=== PATIENT | male | born 1965 | race Caucasian/White ===

== ENCOUNTER 2016-07-09 04:24 | Emergency (ER) | payer MEDICAID ==
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
[2016-07-09 06:53] VITALS: BP 120/84; PULSE 77; RESP 16; TEMP 97.9; O2SAT 94
== END 2016-07-09 06:45 | disposition home or self-care (01) ==
LOC: EDUNIT#
DX: S02.401A Maxillary fracture, unspecified side, initial encounter for closed fracture (principal); S01.81XA Laceration without foreign body of other part of head, initial encounter; B20 Human immunodeficiency virus [HIV] disease; F17.200 Nicotine dependence, unspecified, uncomplicated; Y04.8XXA Assault by other bodily force, initial encounter

== ENCOUNTER 2017-04-24 12:56 | Emergency (ER) | payer MEDICAID ==
[2017-04-24 13:47] LABS: PLATELET COUNT 188 10^3/uL (150-400)
--- NOTE | 2017-04-24 17:48 | EDPHY ---
H & P Stated Complaint: M1 Hold - Personal History Current Tetanus Diphtheria and Acellular Pertussis (TDAP): Yes Tetanus Vaccine Date: 04/2010 - Medical/Surgical History Hx Asthma: No Hx Chronic Respiratory Disease: No Hx Diabetes: No Hx Cardiac Disease: No Hx Renal Disease: No Hx Cirrhosis: No Hx Alcoholism: No Hx HIV/AIDS: Yes Hx Splenectomy or Spleen Trauma: No Other PMH: l knee fx. hiv. psych - Social History Smoking Status: Current every day smoker HPI/ROS: Chief complaint: Suicidal ideation, on mental health hold History of present illness: This is a 51-year-old male who presents to the emergency department with police for suicidal ideation. Police have placed him on a mental health hold. Patient reports a history of depression. He reports he is having problems with his neighbors. He feels they are trying to make his life harder. It is making him depressed. He is thinking of killing himself. He has no specific plan. He denies homicidal ideation. He denies illness or injury. Review of systems: A 10 point review of systems was obtained and other than described above was negative (Diogenes Sethi) - Physical Exam Exam: General Appearance: Alert, nontoxic. Eyes: Pupils equal and round no pallor or injection. ENT, Mouth: Mucous membranes moist. Respiratory: There are no retractions, lungs are clear to auscultation. Cardiovascular: Regular rate and rhythm. Gastrointestinal: Abdomen is soft and non tender, no masses, bowel sounds normal. Neurological: Alert and oriented x4. Strength and sensation intact and symmetrical. Skin: Warm and dry, no rashes. Musculoskeletal: Neck is supple non tender. Extremities are symmetrical, full range of motion. Psychiatric: Patient is oriented X 3, there is no agitation. (Diogenes Sethi) Constitutional: Initial Vital Signs Temperature (C) 36.7 C 04/24/17 13:24 Heart Rate 74 04/24/17 13:24 Respiratory Rate 18 04/24/17 13:24 Blood Pressure 131/74 H 04/24/17 13:24 O2 Sat (%) 94 04/24/17 13:24 O2 Delivery Mode Room Air Allergies/Adverse Reactions: No Known Allergies Allergy (Unverified 03/07/09 08:30) Home Medications: Medication Instructions Recorded Hydrocodone/Acetaminophen [Vicodin 1 each PO Q4 PRN 03/07/09 5-300 mg Tablet] Acyclovir 04/05/17 Truvada 200MG/300MG (*) 07/09/16 Medical Decision Making ED Course/Re-evaluation: Patient is seen under the supervision of my secondary supervising physician Dr. Zara Ashton. Patient presents to the emergency department with police on a mental health hold. He is medically evaluated and cleared for psychiatric evaluation. This is pending at time of dictation. Care of patient turned over Dr. Ashton at end of shift. (Diogenes Sethi) I took over care of this patient at 6:00 p.m.. This patient is on an M1 hold for suicidal ideation. He does not have a plan for suicide. He has amphetamines in his system. Currently Behavioral Health this planning on evaluating him at 0400. 9:30 p.m., patient's care turned over to Dr. Jay Gregorio. He still awaits behavioral health evaluation. (Zara Ashton) 15:00 I assumed care of this patient at shift change. 1940: Pt seen again by mental health and felt ok for d/c home. Denies SI. I concur with this plan. Pt denies SI on my questioning, feels safe going home. Will f/u mental health. (Estephanie Silveira) 2300 Pt care assumed by me pending mental health evaluation. [address] Elizalde pending evaluation. No issues during my care of this patient overnight. (Trevor Jj) Differential Diagnosis: Included but not limited to substance abuse, depression, bipolar, schizophrenia (Diogenes Sethi) - Data Points Laboratory Results: Laboratory Results 04/24/17 13:36 04/24/17 13:36 04/25/17 18:20 Urine Opiates Screen NEGATIVE (NEGATIVE) Urine Barbiturates NEGATIVE (NEGATIVE) Ur Phencyclidine Scrn NEGATIVE (NEGATIVE) Ur Amphetamine Screen NEGATIVE (NEGATIVE) U Benzodiazepines Scrn NEGATIVE (NEGATIVE) Urine Cocaine Screen NEGATIVE (NEGATIVE) U Marijuana (THC) Screen NON-NEGATIVE H (NEGATIVE) Medications Given: Discontinued Medications Clonazepam (Klonopin) 1 mg PO EDNOW ONE Stop: 04/25/17 05:07 Last Admin: 04/25/17 05:07 Dose: Not Given Lamotrigine (Lamictal) 150 mg PO EDNOW ONE Stop: 04/25/17 05:07 Last Admin: 04/25/17 05:07 Dose: Not Given Departure - Departure Disposition: Home, Routine, Self-Care Clinical Impression: Suicidal ideation Condition: Good Instructions: Suicide Prevention for Adults (ED) Additional Instructions: Follow-up with mental health as suggested. Referrals: Elijah Cardenas MD [Primary Care Provider] - As per Instructions
[2017-04-25] MEDS ORDERED: lamoTRIgine 100 MG TAB PO ONE (05:06)
[2017-04-25] MEDS ORDERED: clonazePAM 1 MG TAB PO ONE (05:06)
[2017-04-25 20:03] VITALS: BP 117/77; PULSE 90; RESP 18; TEMP 98.6; O2SAT 93
== END 2017-04-25 20:04 | disposition home or self-care (01) ==
LOC: EEVIPCON 12:56
DX: R45.851 Suicidal ideations (principal); B20 Human immunodeficiency virus [HIV] disease; F17.200 Nicotine dependence, unspecified, uncomplicated
CPT/HCPCS: 80305; G0480

== ENCOUNTER 2018-05-18 17:00 | Inpatient (IN) | payer MEDICAID ==
[2018-05-18] MEDS ORDERED: ACETAMINOPHEN 500 MG TAB PO ONE (17:20)
[2018-05-18] MEDS ORDERED: NS 2,200 ML IV ONE (17:23)
[2018-05-18] MEDS ORDERED: ALBUTEROL 3 ML DEYVIAL IH ONE (17:24)
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
[2018-05-18] MEDS ORDERED: AZITHROMYCIN IV 500 MG in NS 250 ML IV ONE (17:54)
[2018-05-18] MEDS: IBUPROFEN 600 MG TAB PO ONE ×2 (18:09)
[2018-05-18 18:27] LABS: PLATELET COUNT 204 10^3/uL (150-400)
[2018-05-18 18:43] LABS: INR 1.04 (0.83-1.16); PROTIME(PATIENT) 13.8 SEC (12.0-15.0)
[2018-05-18] MEDS ORDERED: IPRATROPIUM/ALBUTEROL 3 ML DEYVIAL IH ONE (18:49)
[2018-05-18] MEDS ORDERED: methylPREDNISolone SOD SUCC 125 MG/2 ML VIAL IVP ONE (18:49)
[2018-05-18] MEDS ORDERED: ACETAMINOPHEN 325 MG TAB PO PRN (19:00)
[2018-05-18] MEDS ORDERED: ONDANSETRON 4 MG/2 ML VIAL IVP PRN (19:00)
[2018-05-18] MEDS ORDERED: ONDANSETRON DISINTEGRATING 4 MG TAB PO PRN (19:00)
--- NOTE | 2018-05-18 19:48 | PDGENHP ---
History and Physical - Chief Complaint Cough, SOB - History of Present Illness Brian Rivera is a 52 yo M with a PMHx of HIV on ART followed by [facility] ESTEFANY Riley who presents to [facility] for SOB, cough. He reports that he was seen by his PCP last Thursday and was diagnosed with PNA however refused admission and but was not started on antibiotics. Since then he has been increasing SOB with a productive cough of green sputum as well as wheezing. He denies any chest pain, edema, palpitations, hemoptysis, headache. He reports posttussive emesis this morning. History Information - Allergies/Home Medication List Allergies/Adverse Reactions: No Known Allergies Allergy (Unverified 03/07/09 08:30) Home Medications: Acyclovir 07/09/16 [Last Taken Unknown] Truvada 200MG/300MG (*) 07/09/16 [Last Taken Unknown] oxyCODONE HCL/ACETAMINOPHEN [Percocet 10-325 mg Tablet] 1 each PO Q6 05/18/18 [ Last Taken Unknown] I have personally reviewed and updated: family history, medical history, social history, surgical history - Past Medical History COPD, HIV - Surgical History Reports: no pertinent surgical hx - Family History Positive for: non-pertinent - Social History Smoking Status: Current every day smoker Review of Systems Review of Systems: ROS: 10pt was reviewed & negative except for what was stated in HPI & below Physical Exam Physical Exam: Temp Pulse Resp BP Pulse Ox 37.3 C 101 H 31 H 137/75 H 95 05/18/18 19:00 05/18/18 19:00 05/18/18 19:00 05/18/18 19:00 05/18/18 19:00 Constitutional: chronically ill appearing, unkempt Eyes: anicteric sclera Ears, Nose, Mouth, Throat: dry mucous membranes Cardiovascular: tachycardia Respiratory: no respiratory distress, reduced air movement, expiratory wheeze, bronchial breath sounds Gastrointestinal: soft, non-tender abdomen Skin: warm Musculoskeletal: generalized weakness Neurologic: AAOx3 Psychiatric: interacting appropriately Lab Data & Imaging Review 05/18/18 17:18 05/18/18 17:54 WBC 13.98 10^3/uL (3.80-9.50) H 05/18/18 17:18 RBC 4.49 10^6/uL (4.40-6.38) 05/18/18 17:18 Hgb 14.6 g/dL (13.7-17.5) 05/18/18 17:18 Hct 43.0 % (40.0-51.0) 05/18/18 17:18 MCV 95.8 fL (81.5-99.8) 05/18/18 17:18 MCH 32.5 pg (27.9-34.1) 05/18/18 17:18 MCHC 34.0 g/dL (32.4-36.7) 05/18/18 17:18 RDW 13.7 % (11.5-15.2) 05/18/18 17:18 Plt Count 204 10^3/uL (150-400) 05/18/18 17:18 MPV 9.4 fL (8.7-11.7) 05/18/18 17:18 Neut % (Auto) 87.3 % (39.3-74.2) H 05/18/18 17:18 Lymph % (Auto) 6.2 % (15.0-45.0) L 05/18/18 17:18 [place] % (Auto) 5.4 % (4.5-13.0) 05/18/18 17:18 Eos % (Auto) 0.4 % (0.6-7.6) L 05/18/18 17:18 Baso % (Auto) 0.4 % (0.3-1.7) 05/18/18 17:18 Nucleat RBC Rel Count 0.0 % (0.0-0.2) 05/18/18 17:18 Absolute Neuts (auto) 12.19 10^3/uL (1.70-6.50) H 05/18/18 17:18 Absolute Lymphs (auto) 0.87 10^3/uL (1.00-3.00) L 05/18/18 17:18 Absolute Monos (auto) 0.76 10^3/uL (0.30-0.80) 05/18/18 17:18 Absolute Eos (auto) 0.06 10^3/uL (0.03-0.40) 05/18/18 17:18 Absolute Basos (auto) 0.06 10^3/uL (0.02-0.10) 05/18/18 17:18 Absolute Nucleated RBC 0.00 10^3/uL (0-0.01) 05/18/18 17:18 Immature Gran % 0.3 % (0.0-1.1) 05/18/18 17:18 Immature Gran # 0.04 10^3/uL (0.00-0.10) 05/18/18 17:18 PT 13.8 SEC (12.0-15.0) 05/18/18 17:18 INR 1.04 (0.83-1.16) 05/18/18 17:18 APTT 46.3 SEC (23.0-38.0) H 05/18/18 17:18 VBG Lactic Acid 0.9 mmol/L (0.7-2.1) 05/18/18 17:54 Sodium 134 mEq/L (135-145) L 05/18/18 17:54 Potassium 4.0 mEq/L (3.5-5.2) 05/18/18 17:54 Chloride 104 mEq/L (97-110) 05/18/18 17:54 Carbon Dioxide 20 mEq/l (22-31) L 05/18/18 17:54 Anion Gap 10 mEq/L (6-14) 05/18/18 17:54 BUN 11 mg/dL (7-23) 05/18/18 17:54 Creatinine 1.1 mg/dL (0.7-1.3) 05/18/18 17:54 Estimated GFR > 60 05/18/18 17:54 Glucose 117 mg/dL (70-100) H 05/18/18 17:54 Calcium 9.2 mg/dL (8.5-10.4) 05/18/18 17:54 Total Bilirubin 0.8 mg/dL (0.1-1.4) 05/18/18 17:54 Assessment & Plan Assessment: Sepsis - Presenting with fever, 39.2, Leukocytosis 13.9, Tachycardia, BP WNL - Source PNA, CXR shows RLL consolidation on admission - Sepsis protocol initiated in ED with 30 cc/kg IVF, Abx (Ceftriaxone and Azithromycin) - Will continue mIVF overnight - Initial LA 0.9 - Blood cultures x2 collected Community Acquired Pneumonia - 1 week of productive cough, fevers - CXR on admission showing RLL PNA - S/p Ceftriaxone and Azithromycin in ED, will continue for now COPD Exacerbation - Significant wheezing on exam - S/p 125 mg IV Solumedrol in ED, will continue Prednisone 40 mg qd for total 5 day course - Ordered Duonebs scheduled QID, PRN as well - Flu and Resp PCR pending - Wean 02 as tolerated HIV - On Truvada, Acyclovir for ppx - CD4 count and viral load pending, per patient most recent CD4 count 300 Tobacco Abuse - Nicotine patch ordered FEN: IVF DVT PPx: Lovenox Code: FULL Dispo: Admit to Medicine
[2018-05-18] MEDS ORDERED: IPRATROPIUM/ALBUTEROL 3 ML DEYVIAL IH PRN (20:02)
[2018-05-18] MEDS ORDERED: NS 1,000 ML IV SCH (20:15)
[2018-05-19 05:31] LABS: PLATELET COUNT 172 10^3/uL (150-400)
[2018-05-19] MEDS: predniSONE 20 MG TAB PO SCH (09:45)
--- NOTE | 2018-05-19 09:46 | PDMN ---
Medical Necessity Medical necessity: [facility] [place] CAP, A-2 days: 52 yo w/ sepsis 2nd CAP in setting of HIV+ on ART. Pt tachy 122, tachypneac 30s, temp 39.2, BC pending. Meet [facility] IP criteria for CAP w/ hemodynamic instability in immunocompromised pt.
[2018-05-19] MEDS: LIDOCAINE 4%/MENTHOL 1% PATCH TD SCH (10:16)
[2018-05-19] MEDS: NICOTINE 14 MG/24 HR PATCH TD SCH (10:16)
[2018-05-19] MEDS: ENOXAPARIN 40 MG/0.4 ML SYR SC SCH (10:17)
[2018-05-19] MEDS: IPRATROPIUM/ALBUTEROL 3 ML DEYVIAL IH SCH ×3 (10:37→19:33)
[2018-05-19] MEDS: EMTRICITABINE PO SCH (11:56)
[2018-05-19] MEDS: TENOFOV ALAFENAM PO SCH (11:56)
[2018-05-19] MEDS: DARUNAVIR PO SCH (11:57)
[2018-05-19] MEDS: COBICISTAT PO SCH (11:57)
--- NOTE | 2018-05-19 11:57 | ASMTCMCOM ---
CM Note CM Note Notes: Pt who is homeless came in from long term has pneumonia, hypoxia. Pt with COPD and HIV, followed at [facility]. Chart review indicates pt last saw PCP last week was diagnosed with pneumonia and declined admission. Pt on IV antibiotics. Chart also indicates pt "lost" O2 tank and medications in last day. PT/OT evals pending. CM to follow. Date Signed: 05/19/2018 11:56 AM Electronically Signed By:KATERINA Springer
[2018-05-19] MEDS: SULFAMETHOX/TMP 800/160 MG 1 TAB PO SCH (12:04)
[2018-05-19] MEDS: ACYCLOVIR 400 MG TAB PO SCH ×2 (12:45→20:38)
[2018-05-19] MEDS: oxyCODONE IR 5 MG TAB PO SCH ×3 (13:22→23:20)
[2018-05-19] MEDS: OXYCODONE/APAP 5/325 TAB PO SCH ×3 (13:22→23:20)
--- NOTE | 2018-05-19 17:06 | HOSPPROG ---
Hospitalist Progress Note Assessment/Plan: 52-year-old male with past medical history of HIV admitted with sepsis likely due to community-acquired pneumonia. Sepsis -source likely due to right lower lobe pneumonia. White count trending down, no longer febrile. Remains hypoxic on room air. - Will continue mIVF overnight - Initial LA 0.9 - Blood cultures x2 collected - continue abx for CAP with rocephin and azithro Community Acquired Pneumonia - 1 week of productive cough, fevers - CXR on admission showing RLL PNA - S/p Ceftriaxone and Azithromycin in ED, will continue for now COPD Exacerbation - Significant wheezing on exam - S/p 125 mg IV Solumedrol in ED, will continue Prednisone 40 mg qd for total 5 day course - Ordered Duonebs scheduled QID, PRN as well - Flu and Resp PCR negative - Wean 02 as tolerated HIV- states his last CD4 was 300, follows with a doc at in [place] - On Truvada, Acyclovir for ppx -on descovy, and prezcobix, confirmed by pharmacy -he has one dose of his home HIV meds which we bree cont here. 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 on oxy for this. Cont home dose. Tobacco Abuse - Nicotine patch ordered FEN: IVF DVT PPx: Lovenox Code: FULL Dispo: continue inpatient mangaement for hypoxia, pna Subjective: still coughing a lot, feet hurt. Objective: Vital Signs Temp Pulse Resp BP Pulse Ox 36.5 C 83 16 109/68 92 05/19/18 15:49 05/19/18 16:20 05/19/18 16:20 05/19/18 15:49 05/19/18 16:20 Microbiology 05/18/18 21:30 Respiratory Panel (PCR) - Final Nasal, Sinus - Swab No Organism Detected By Pcr Laboratory Results 05/19/18 05:00 05/19/18 05:00 05/18/18 05/19/18 05/20/18 05:59 05:59 05:59 Intake Total 3630 Output Total 1300 Balance 2330 PT 13.8 SEC (12.0-15.0) 05/18/18 17:18 INR 1.04 (0.83-1.16) 05/18/18 17:18 ICD10 Worksheet Patient Problems: Problems Problem Status Onset Hypoxia Acute Pneumonia Acute AIDS Acute Acute respiratory failure Acute Malnutrition Acute Nausea and vomiting Acute
[2018-05-19] MEDS: AZITHROMYCIN IV 500 MG in NS 250 ML IV SCH (18:11)
[2018-05-19] MEDS: BENZONATATE 100 MG CAP PO PRN (18:54)
[2018-05-19] MEDS: PATCH REMOVAL 1 EA PATCH TD SCH (20:43)
[2018-05-19] MEDS ORDERED: IPRATROPIUM/ALBUTEROL 3 ML DEYVIAL IH SCH (21:00)
[2018-05-19 21:38] LABS: %CD3 (T CELLS) 81 % (58-86); 4/8 RATIO 0.2 (>=0.9); CD3 (T CELLS) 615 cells/mcL (550-2202); CD4 (T CELLS) 97 cells/mcL (365-1437); CD45 TOTAL LYMPH COUNT 0.76 thou/mcL (0.82-2.84); CD8 (T CELLS) 495 cells/mcL (117-846)
[2018-05-20] MEDS: BENZONATATE 100 MG CAP PO PRN ×2 (02:35→22:17)
[2018-05-20] MEDS: IPRATROPIUM/ALBUTEROL 3 ML DEYVIAL IH SCH ×4 (05:23→19:59)
[2018-05-20] MEDS: oxyCODONE IR 5 MG TAB PO SCH ×4 (05:26→23:36)
[2018-05-20] MEDS: OXYCODONE/APAP 5/325 TAB PO SCH ×4 (05:26→23:36)
[2018-05-20 05:56] LABS: PLATELET COUNT 172 10^3/uL (150-400)
[2018-05-20] MEDS: SULFAMETHOX/TMP 800/160 MG 1 TAB PO SCH (09:24)
[2018-05-20] MEDS: ACYCLOVIR 400 MG TAB PO SCH ×2 (09:24→22:10)
[2018-05-20] MEDS: predniSONE 20 MG TAB PO SCH (09:25)
[2018-05-20] MEDS: ENOXAPARIN 40 MG/0.4 ML SYR SC SCH (09:25)
[2018-05-20] MEDS: BIOTENE DRY MOUTH ORAL RINSE 237 ML BTL MM PRN ×2 (09:28→17:32)
[2018-05-20] MEDS: NICOTINE 14 MG/24 HR PATCH TD SCH (09:28)
[2018-05-20] MEDS: LIDOCAINE 4%/MENTHOL 1% PATCH TD SCH (09:28)
--- NOTE | 2018-05-20 11:04 | ASMTCMCOM ---
CM Note CM Note Notes: Met with patient. He is in a reserved bed at [facility]. I called and left a message with Fortino informing him of patient's admission. We will need to ensure that patient returns to longterm with all discharge paperwork. I also spoke jeanne Garcia, patient's Imaging Analyst at [facility]. She is working on finding housing for patient. Per Gloria at [facility], patient had PPD placed 05/17. I read the test, and it was negative. I will provide documentation for the longterm, and Gloria will chart it, as well. Current CM discharge plan: [facility] Date Signed: 05/20/2018 11:03 AM Electronically Signed By:Shobha Bravo RN
[2018-05-20] MEDS: COBICISTAT PO SCH (11:39)
[2018-05-20] MEDS: DARUNAVIR PO SCH (11:39)
[2018-05-20] MEDS: EMTRICITABINE PO SCH (11:39)
[2018-05-20] MEDS: TENOFOV ALAFENAM PO SCH (11:39)
--- NOTE | 2018-05-20 15:24 | HOSPPROG ---
Hospitalist Progress Note Assessment/Plan: 52-year-old male with past medical history of HIV admitted with sepsis likely due to community-acquired pneumonia. Community Acquired Pneumonia -CXR with RLL - 1 week of productive cough, fevers - CXR on admission showing RLL PNA - S/p Ceftriaxone and Azithromycin in ED, will continue for now COPD Exacerbation - Significant wheezing on exam - S/p 125 mg IV Solumedrol in ED, will continue Prednisone 40 mg qd for total 5 day course - Ordered Duonebs scheduled QID, PRN as well - Flu and Resp PCR negative - Wean 02 as tolerated HIV- states his last CD4 was 300, follows with a doc at in [place]. I checked CD4 while here and it is now 97. Will discuss with ID - On Truvada, Acyclovir for ppx -on descovy, and prezcobix, confirmed by pharmacy, last dose today. I discussed the case with pharm D and they will look in to getting doses while here, but we may not be able to get his meds while here. - CD4 count and viral load are low, patient meets criteria for AIDS -will consult ID to ensure patient shouldnt be on a different regimen. 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 on oxy for this. Cont home dose. Tobacco Abuse - Nicotine patch ordered FEN: IVF DVT PPx: Lovenox Code: FULL Dispo: continue inpatient mangaement for hypoxia, pna Subjective: has heart burn. Feels breathing better. Objective: Vital Signs Temp Pulse Resp BP Pulse Ox 36.3 C 72 18 112/63 93 05/20/18 11:08 05/20/18 11:30 05/20/18 11:30 05/20/18 11:08 05/20/18 11:30 Laboratory Results 05/20/18 05:42 05/20/18 05:42 05/19/18 05/20/18 05/21/18 05:59 05:59 05:59 Intake Total 3630 3150 Output Total 1300 600 Balance 2330 2550 PT 13.8 SEC (12.0-15.0) 05/18/18 17:18 INR 1.04 (0.83-1.16) 05/18/18 17:18 - Physical Exam Constitutional: no apparent distress, appears nourished, not in pain Eyes: PERRL, anicteric sclera, EOMI Ears, Nose, Mouth, Throat: moist mucous membranes, hearing normal, ears appear normal, no oral mucosal ulcers Cardiovascular: regular rate and rhythym, no murmur, rub, or gallop Respiratory: reduced air movement Gastrointestinal: normoactive bowel sounds, soft, non-tender abdomen, no palpable masses Genitourinary: no bladder fullness, no bladder tenderness, no renal bruits Skin: no rashes or abrasions, no fluctuance, no induration Musculoskeletal: full muscle strength, no muscle tenderness, normal joint ROM Neurologic: AAOx3, sensation intact bilaterally Psychiatric: interacting appropriately, not anxious, not encephalopathic, thought process linear Lymph, Heme, Immunologic: no cervical LAD, no supraclavicular LAD ICD10 Worksheet Patient Problems: Problems Problem Status Onset Hypoxia Acute Pneumonia Acute AIDS Acute Acute respiratory failure Acute Malnutrition Acute Nausea and vomiting Acute
[2018-05-20] MEDS: AZITHROMYCIN IV 500 MG in NS 250 ML IV SCH (18:06)
[2018-05-20] MEDS: PATCH REMOVAL 1 EA PATCH TD SCH (22:11)
[2018-05-20] MEDS: CALCIUM CARBONATE 500 MG CHEWABLE TAB PO PRN (23:35)
[2018-05-21] MEDS: BENZONATATE 100 MG CAP PO PRN ×3 (04:12→23:41)
[2018-05-21] MEDS: CALCIUM CARBONATE 500 MG CHEWABLE TAB PO PRN ×3 (04:14→18:45)
[2018-05-21 05:49] LABS: PLATELET COUNT 198 10^3/uL (150-400)
[2018-05-21] MEDS: IPRATROPIUM/ALBUTEROL 3 ML DEYVIAL IH SCH ×4 (06:06→21:32)
[2018-05-21] MEDS: oxyCODONE IR 5 MG TAB PO SCH ×4 (06:15→23:41)
[2018-05-21] MEDS: OXYCODONE/APAP 5/325 TAB PO SCH ×4 (06:15→23:41)
[2018-05-21] MEDS: SULFAMETHOX/TMP 800/160 MG 1 TAB PO SCH (08:32)
[2018-05-21] MEDS: ACYCLOVIR 400 MG TAB PO SCH ×2 (08:32→20:04)
[2018-05-21] MEDS: predniSONE 20 MG TAB PO SCH (08:32)
[2018-05-21] MEDS: ENOXAPARIN 40 MG/0.4 ML SYR SC SCH (08:32)
[2018-05-21] MEDS: LIDOCAINE 4%/MENTHOL 1% PATCH TD SCH (08:33)
[2018-05-21] MEDS: NICOTINE 14 MG/24 HR PATCH TD SCH (08:33)
[2018-05-21] MEDS: EMTRICITABINE PO SCH (11:29)
[2018-05-21] MEDS: TENOFOV ALAFENAM PO SCH (11:29)
[2018-05-21] MEDS: DARUNAVIR PO SCH (11:30)
[2018-05-21] MEDS: COBICISTAT PO SCH (11:30)
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
[2018-05-21] MEDS: guaiFENesin 200 MG TAB PO PRN ×2 (12:47→20:04)
--- NOTE | 2018-05-21 13:17 | HOSPPROG ---
Hospitalist Progress Note Assessment/Plan: 52-year-old male with past medical history of HIV admitted with sepsis likely due to community-acquired pneumonia. Community Acquired Pneumonia -CXR with RLL - 1 week of productive cough, fevers - CXR on admission showing RLL PNA - S/p Ceftriaxone and Azithromycin in ED, will continue for now -check strep pneumo and legionella urinary antigen COPD Exacerbation - Significant wheezing on exam - S/p 125 mg IV Solumedrol in ED, will continue Prednisone 40 mg qd for total 5 day course - Ordered Duonebs scheduled QID, PRN as well - Flu and Resp PCR negative - Wean 02 as tolerated -tessalon and humabid for cough HIV- states his last CD4 was 300, follows with a doc at in [place]. I checked CD4 while here and it is now 97. ID consulted who recommends continue on current regimen. - On Truvada, Acyclovir for ppx -on descovy, and prezcobix, confirmed by pharmacy, patient only had one dose. Not on formulary. . I discussed the case with pharm D and they will look in to getting doses while here, but we may not be able to get his meds while here. 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 on oxy for this. Cont home dose. Tobacco Abuse - Nicotine patch ordered FEN: IVF DVT PPx: Lovenox Code: FULL Dispo: continue inpatient mangaement for hypoxia, pna Subjective: still coughing a lot. otherwise well. Objective: Vital Signs Temp Pulse Resp BP Pulse Ox 36.4 C 71 16 115/71 96 05/21/18 08:00 05/21/18 11:13 05/21/18 11:13 05/21/18 08:00 05/21/18 11:13 Laboratory Results 05/21/18 05:28 05/21/18 05:28 05/20/18 05/21/18 05/22/18 05:59 05:59 05:59 Intake Total 3150 2668 1747 Output Total 600 1700 710 Balance 2550 968 1037 PT 13.8 SEC (12.0-15.0) 05/18/18 17:18 INR 1.04 (0.83-1.16) 05/18/18 17:18 - Physical Exam Constitutional: no apparent distress, appears nourished, not in pain Eyes: PERRL, anicteric sclera, EOMI Ears, Nose, Mouth, Throat: moist mucous membranes, hearing normal, ears appear normal, no oral mucosal ulcers Cardiovascular: regular rate and rhythym, no murmur, rub, or gallop Respiratory: reduced air movement, expiratory wheeze Gastrointestinal: normoactive bowel sounds, soft, non-tender abdomen, no palpable masses Genitourinary: no bladder fullness, no bladder tenderness, no renal bruits Skin: no rashes or abrasions, no fluctuance, no induration Musculoskeletal: full muscle strength, no muscle tenderness, normal joint ROM Neurologic: AAOx3, sensation intact bilaterally Psychiatric: interacting appropriately, not anxious, not encephalopathic, thought process linear Lymph, Heme, Immunologic: no cervical LAD, no supraclavicular LAD ICD10 Worksheet Patient Problems: Problems Problem Status Onset Hypoxia Acute Pneumonia Acute AIDS Acute Acute respiratory failure Acute Malnutrition Acute Nausea and vomiting Acute
[2018-05-21] MEDS: AZITHROMYCIN IV 500 MG in NS 250 ML IV SCH (18:45)
[2018-05-21] MEDS: PATCH REMOVAL 1 EA PATCH TD SCH (20:01)
[2018-05-22 04:49] LABS: PLATELET COUNT 220 10^3/uL (150-400)
[2018-05-22] MEDS: OXYCODONE/APAP 5/325 TAB PO SCH ×3 (05:47→18:07)
[2018-05-22] MEDS: oxyCODONE IR 5 MG TAB PO SCH ×3 (05:47→18:06)
[2018-05-22] MEDS: CALCIUM CARBONATE 500 MG CHEWABLE TAB PO PRN (05:47)
[2018-05-22] MEDS: BIOTENE DRY MOUTH ORAL RINSE 237 ML BTL MM PRN ×2 (05:49→18:14)
[2018-05-22] MEDS: IPRATROPIUM/ALBUTEROL 3 ML DEYVIAL IH SCH ×4 (05:59→21:50)
--- NOTE | 2018-05-22 08:59 | HOSPPROG ---
Hospitalist Progress Note Assessment/Plan: #CAP -Strep/Legionella pending -CTX, Azithro #Tobacco dependence: counseled on cessation #HIV: have to contact his doctor on Thursday for antivirals #Peripheral neuropathy #COPD exacerbation: Duonebs, prednisone #Acute hypoxemic resp failure: evidenced by RA 81%. Due to COPD exacerbation, CAP #Diet: regular #DVT ppx: lovenox Disp: inpatient admission for iv abx, nebs Subjective: feeling better. SOB improved Objective: Vital Signs Temp Pulse Resp BP Pulse Ox 36.4 C 73 14 103/84 H 92 05/22/18 04:00 05/22/18 07:40 05/22/18 07:40 05/22/18 07:40 05/22/18 07:40 Laboratory Results 05/22/18 04:35 05/22/18 04:35 05/21/18 05/22/18 05/23/18 05:59 05:59 05:59 Intake Total 2668 2347 Output Total 1700 710 Balance 968 1637 PT 13.8 SEC (12.0-15.0) 05/18/18 17:18 INR 1.04 (0.83-1.16) 05/18/18 17:18 - Time Spent With Patient Time Spent with Patient: greater than 35 minutes Time Spent with Patient: Greater than 35 minutes spent on this patients care, greater than 50% of time spent counseling, educating, and coordinating care regarding the above mentioned plan. - Physical Exam Constitutional: other (thin) Eyes: PERRL Ears, Nose, Mouth, Throat: moist mucous membranes Cardiovascular: regular rate and rhythym Respiratory: reduced air movement, No expiratory wheeze, No inspiratory crackles Gastrointestinal: normoactive bowel sounds, soft, non-tender abdomen Genitourinary: no bladder fullness Skin: warm Musculoskeletal: full muscle strength Neurologic: AAOx3, CN II-XII Intact Psychiatric: interacting appropriately ICD10 Worksheet Patient Problems: Problems Problem Status Onset Hypoxia Acute Pneumonia Acute AIDS Acute Acute respiratory failure Acute Malnutrition Acute Nausea and vomiting Acute
[2018-05-22] MEDS: ENOXAPARIN 40 MG/0.4 ML SYR SC SCH (09:12)
[2018-05-22] MEDS: SULFAMETHOX/TMP 800/160 MG 1 TAB PO SCH (09:13)
[2018-05-22] MEDS: NICOTINE 14 MG/24 HR PATCH TD SCH (09:13)
[2018-05-22] MEDS: predniSONE 20 MG TAB PO SCH (09:13)
[2018-05-22] MEDS: LIDOCAINE 4%/MENTHOL 1% PATCH TD SCH (09:13)
[2018-05-22] MEDS: ACYCLOVIR 400 MG TAB PO SCH ×2 (09:13→20:40)
--- NOTE | 2018-05-22 11:37 | PCMIDPN ---
Assessment/Plan: Assessment: 52-year-old man with community onset pneumonia complicating chronic interstitial lung disease and emphysema. Overall he has improved and is now able to expectorate more sputum. Do not suspect an opportunistic infection in this setting, although it is unclear of how adherent he has been to his antiretrovirals and how accurate his CD4 count is on this admission. Will connect with his outpatient HIV provider on Thursday but in the interim will have to hold his antiretrovirals. 1. Community onset pneumonia, improved 2. HIV infection, without AIDS defining illnesses 3. Interstitial lung disease, no immune suppressive medications chronically 4. Emphysema Plan: 1. Continue IV ceftriaxone but decrease dose to 1 g daily 2. Discontinue IV azithromycin; start oral azithromycin 250 mg p. O. Daily 3. Hold anti-retroviral medications as is unclear how consistent he has been able to take these; unable to connect with his outpatient HIV provider on Thursday , this will have to occur on Thursday 4. Pending urine Legionella and pneumococcal antigen testing 5. Discussed in detail potential side effects of antibiotics including antibiotic associated diarrhea, rash, C diff colitis Jose A Montano MD Infectious Diseases 05/22/18 11:35 Subjective: No fever or chills over the past 24 hr. He does continue to have night sweats. No abdominal pain, nausea, or diarrhea. He has not developed any rashes. States he has been ambulating both in his room and in the hallway that helped him to cough deeply and expectorates sputum which is increased over the past 24 hr. Objective: Vital Signs Temp Pulse Resp BP Pulse Ox 36.4 C 73 14 103/84 H 92 05/22/18 04:00 05/22/18 07:40 05/22/18 07:40 05/22/18 07:40 05/22/18 07:40 Laboratory Results 05/22/18 04:35 05/22/18 04:35 05/21/18 05/22/18 05/23/18 05:59 05:59 05:59 Intake Total 6269 8127 Output Total 8545 710 Balance 968 1027 Medications Generic Name Dose Route Start Last Admin Trade Name Freq PRN Reason Stop Dose Admin Acyclovir 400 mg 05/19/18 12:15 05/22/18 09:13 Acyclovir PO 06/18/18 12:14 400 mg BID DIONY Azithromycin 250 mg 05/22/18 19:00 Zithromax PO 06/21/18 18:59 DAILY@1900 [facility] Protocol Ceftriaxone Sodium/Dextrose 50 mls @ 100 mls/hr 05/22/18 19:00 Rocephin 1 Gm (Premix) IV 06/21/18 18:59 DAILY@1900 [facility] Protocol Trimethoprim/Sulfamethoxazole 1 ea 05/19/18 10:00 05/22/18 09:13 Bactrim Ds PO 06/18/18 09:59 1 ea DAILY [facility] Protocol Discontinued Medications Generic Name Dose Route Start Last Admin Trade Name Lalo PRN Reason Stop Dose Admin Azithromycin 500 mg/ Sodium 255 mls @ 255 mls/hr 05/19/18 19:00 05/21/18 18: 45 Chloride IV 06/18/18 18:59 255 mls Q24H DIONY Protocol Ceftriaxone Sodium 2 gm/ 50 mls @ 100 mls/hr 05/19/18 18:30 05/21/18 18:00 Sodium Chloride IV 06/18/18 18:29 50 mls Q24H DIONY Protocol Microbiology 05/18/18 21:30 Nasal, Sinus - Swab Respiratory Panel (PCR) - Final No Organism Detected By Pcr 05/18/18 18:35 Blood Blood Culture - Preliminary 05/18/18 17:54 Blood Blood Culture - Preliminary Laboratory Tests 05/20/18 05/21/18 05/21/18 05:42 05:28 05:28 WBC 15.77 H 10.92 H Hgb 12.0 L 12.1 L Plt Count 172 198 Creatinine 0.9 ALT Alkaline Phosphatase Total Protein Albumin 05/22/18 05/22/18 04:35 04:35 WBC 8.58 Hgb 13.5 L Plt Count 220 Creatinine 0.8 ALT 35 Alkaline Phosphatase 67 Total Protein 6.1 L Albumin 3.2 L - Physical Exam General Appearance: no apparent distress, thin, non-toxic EENT: No scleral icterus Respiratory: other (Diminished breath sounds to the bases bilaterally, no wheeze ) Neck: full range of motion, supple Cardiac/Chest: regular rate, rhythm, No bradycardia, No tachycardia, No diastolic murmur, No systolic murmur Extremities: No swelling, No erythema Abdomen: normal bowel sounds, non-tender, soft, No distended, No guarding Skin: No erythema Neuro/Psych: alert, normal mood/affect, oriented x 3, No confused - Time Spent With Patient Time Spent with Patient: greater than 25 minutes Time Spent with Patient: Greater than 25 minutes spent on this patients care, greater than 50% of time spent counseling, educating, and coordinating care regarding the above mentioned plan. ICD10 Worksheet Patient Problems: Problems Problem Status Onset Hypoxia Acute Pneumonia Acute AIDS Acute Acute respiratory failure Acute Malnutrition Acute Nausea and vomiting Acute
[2018-05-22] MEDS: AZITHROMYCIN 250 MG TAB PO SCH (18:06)
[2018-05-22] MEDS: guaiFENesin 200 MG TAB PO PRN (20:39)
[2018-05-22] MEDS: BENZONATATE 100 MG CAP PO PRN (20:39)
[2018-05-22] MEDS: PATCH REMOVAL 1 EA PATCH TD SCH (20:42)
[2018-05-23] MEDS: oxyCODONE IR 5 MG TAB PO SCH ×4 (00:41→17:54)
[2018-05-23] MEDS: OXYCODONE/APAP 5/325 TAB PO SCH ×4 (00:41→17:54)
[2018-05-23] MEDS: IPRATROPIUM/ALBUTEROL 3 ML DEYVIAL IH SCH ×4 (05:55→22:23)
[2018-05-23] MEDS: ENOXAPARIN 40 MG/0.4 ML SYR SC SCH (09:25)
[2018-05-23] MEDS: NICOTINE 14 MG/24 HR PATCH TD SCH (09:25)
[2018-05-23] MEDS: SULFAMETHOX/TMP 800/160 MG 1 TAB PO SCH (09:25)
[2018-05-23] MEDS: ACYCLOVIR 400 MG TAB PO SCH ×2 (09:25→21:13)
[2018-05-23] MEDS: LIDOCAINE 4%/MENTHOL 1% PATCH TD SCH (09:25)
[2018-05-23] MEDS: predniSONE 20 MG TAB PO SCH (09:25)
--- NOTE | 2018-05-23 12:11 | HOSPPROG ---
Hospitalist Progress Note Assessment/Plan: #CAP -Strep/Legionella pending -CTX, Azithro (Day 5) #Tobacco dependence: counseled on cessation #HIV: have to contact his doctor on Thursday for antivirals. -suspect not compliant with HAART therapy given low CD4 count #Peripheral neuropathy: not on home meds #COPD exacerbation: Duonebs. Completed 5 days prednisone #Acute on chronic hypoxemic resp failure: evidenced by RA 81%. Due to COPD exacerbation, CAP -needing O2 at night. Difficult to DC with homelessness; RT assisting #Diet: regular #DVT ppx: lovenox Disp: inpatient admission for abx, nebs Subjective: breathing improved. Still dry cough Objective: Vital Signs Temp Pulse Resp BP Pulse Ox 36.4 C 82 16 104/62 94 05/23/18 11:28 05/23/18 11:28 05/23/18 11:28 05/23/18 11:28 05/23/18 11:28 Laboratory Results 05/23/18 04:10 05/22/18 04:35 05/22/18 05/23/18 05/24/18 05:59 05:59 05:59 Intake Total 2347 1900 Output Total 710 Balance 1637 1900 PT 13.8 SEC (12.0-15.0) 05/18/18 17:18 INR 1.04 (0.83-1.16) 05/18/18 17:18 - Time Spent With Patient Time Spent with Patient: greater than 35 minutes Time Spent with Patient: Greater than 35 minutes spent on this patients care, greater than 50% of time spent counseling, educating, and coordinating care regarding the above mentioned plan. - Physical Exam Constitutional: other (thin) Eyes: PERRL Ears, Nose, Mouth, Throat: moist mucous membranes Cardiovascular: regular rate and rhythym Respiratory: reduced air movement, No expiratory wheeze, No inspiratory crackles Gastrointestinal: normoactive bowel sounds Genitourinary: no bladder fullness Skin: warm Musculoskeletal: full muscle strength Neurologic: AAOx3 ICD10 Worksheet Patient Problems: Problems Problem Status Onset Hypoxia Acute Pneumonia Acute AIDS Acute Acute respiratory failure Acute Malnutrition Acute Nausea and vomiting Acute
--- NOTE | 2018-05-23 14:51 | PDHOMEO2F ---
Home Oxygen Face to Face Home Orders: I certify that a physician or a nurse practitioner or physician's car rental sales assistant has had a [id number] encounter with this patient on the date of this order due to the diagnosis listed, which relates to the primary reason the patient requires home oxygen. Alternative treatments have been tried, or considered, and deemed ineffective. It is anticipated that supplemental oxygen will result in improvement with treatment. Home oxygen qualifying diagnosis: COPD Home oxygen secondary diagnosis: ILD SpO2 on room air (%): 81 Frequency of home oxygen needed: during sleep Home oxygen liters per minute: 4 Home oxygen delivery device: nasal cannula Concentrator: Yes E-tanks for mobility and back up: Yes If ordering portable O2, is the patient mobile in the home?: Yes I certify that, based on these findings, the home oxygen is medically necessary for this patient for the following length of time. Length of time home oxygen needed: 99 years
[2018-05-23] MEDS: AZITHROMYCIN 250 MG TAB PO SCH (17:54)
[2018-05-23] MEDS: guaiFENesin 200 MG TAB PO PRN (21:26)
[2018-05-23] MEDS: BENZONATATE 100 MG CAP PO PRN (21:26)
[2018-05-23] MEDS: PATCH REMOVAL 1 EA PATCH TD SCH (21:47)
[2018-05-24] MEDS: oxyCODONE IR 5 MG TAB PO SCH ×4 (00:34→18:30)
[2018-05-24] MEDS: OXYCODONE/APAP 5/325 TAB PO SCH ×4 (00:35→18:29)
[2018-05-24] MEDS: IPRATROPIUM/ALBUTEROL 3 ML DEYVIAL IH SCH ×4 (06:26→20:53)
[2018-05-24] MEDS: SULFAMETHOX/TMP 800/160 MG 1 TAB PO SCH (08:58)
[2018-05-24] MEDS: ENOXAPARIN 40 MG/0.4 ML SYR SC SCH (08:58)
[2018-05-24] MEDS: ACYCLOVIR 400 MG TAB PO SCH ×2 (08:58→20:48)
[2018-05-24] MEDS: NICOTINE 14 MG/24 HR PATCH TD SCH (09:02)
--- NOTE | 2018-05-24 10:18 | PCMIDPN ---
Assessment/Plan: Assessment: Community-acquired pneumonia in a patient with intermittently treated HIV. Patient also has underlying emphysema and interstitial lung disease. He appears to be clinically improved. Continues to have a productive cough however. The challenge in his care is ongoing HIV management. All indications from the patient are that he intermittently takes his medications. He also has housing in [place] and relates that he is in line for a 1 bedroom apartment at a [facility] [employer] project but that they are trying to this allow his section 8 status due to issues at a prior residence. Legionella pneumococcal urine antigens are negative. Plan: 1. Plan to continue IV ceftriaxone while the patient is in house. 2. Continue oral azithromycin. 3. Attempt to sort out his housing status today. 4. Potential discharge if all of these factors align. Subjective: Patient is resting in his hospital bed. He is in good spirits and very talkative. He denies any new complaints. Continues to note ongoing productive cough. Denies shortness of breath above baseline. Objective: Ceftriaxone # 3 Azithromycin # 3 Vital Signs Temp Pulse Resp BP Pulse Ox 36.5 C 75 16 103/71 89 L 05/24/18 07:16 05/24/18 07:16 05/24/18 07:16 05/24/18 07:16 05/24/18 07:16 Laboratory Results 05/23/18 04:10 05/22/18 04:35 05/23/18 05/24/18 05/25/18 05:59 05:59 05:59 Intake Total 1900 2250 Balance 1900 2250 - Physical Exam General Appearance: WD/WN, alert, no apparent distress, non-toxic Respiratory: lungs clear, normal breath sounds, wheezing, No respiratory distress, No crackles, No coarse breath sounds Cardiac/Chest: regular rate, rhythm, No tachycardia Skin: normal color, warm/dry, No rash Neuro/Psych: alert, normal mood/affect, oriented x 3 ICD10 Worksheet Patient Problems: Problems Problem Status Onset Hypoxia Acute Pneumonia Acute AIDS Acute Acute respiratory failure Acute Malnutrition Acute Nausea and vomiting Acute
[2018-05-24] MEDS: LIDOCAINE 4%/MENTHOL 1% PATCH TD SCH (11:08)
--- NOTE | 2018-05-24 15:38 | HOSPPROG ---
Hospitalist Progress Note Assessment/Plan: #CAP -Strep/Legionella pending -CTX, Azithro (Day 6) #Tobacco dependence: counseled on cessation #HIV:suspect not compliant with HAART therapy given low CD4 count #Peripheral neuropathy: not on home meds #COPD exacerbation: Duonebs. Completed 5 days prednisone #Acute on chronic hypoxemic resp failure: evidenced by RA 81%. Due to COPD exacerbation, CAP -needing O2 at night. Difficult to DC with homelessness; RT assisting #Diet: regular #DVT ppx: lovenox Disp: [employer] assisting with hotel for 2 weeks; plan on DC tomorrow if clinically stable Subjective: very agitated, upset at staffing rn this morning Objective: Vital Signs Temp Pulse Resp BP Pulse Ox 36.4 C 80 16 103/71 89 L 05/24/18 12:00 05/24/18 12:00 05/24/18 12:00 05/24/18 12:00 05/24/18 12:00 Laboratory Results 05/23/18 04:10 05/22/18 04:35 05/23/18 05/24/18 05/25/18 05:59 05:59 05:59 Intake Total 1900 2250 Balance 1900 2250 PT 13.8 SEC (12.0-15.0) 05/18/18 17:18 INR 1.04 (0.83-1.16) 05/18/18 17:18 - Time Spent With Patient Time Spent with Patient: greater than 35 minutes Time Spent with Patient: Greater than 35 minutes spent on this patients care, greater than 50% of time spent counseling, educating, and coordinating care regarding the above mentioned plan. - Physical Exam Constitutional: other (agitated) Eyes: PERRL Ears, Nose, Mouth, Throat: moist mucous membranes Gastrointestinal: No distension Genitourinary: No brock in urethra Skin: warm Musculoskeletal: full muscle strength Neurologic: AAOx3, CN II-XII Intact Psychiatric: other (agitated, tearful ) ICD10 Worksheet Patient Problems: Problems Problem Status Onset Hypoxia Acute Pneumonia Acute AIDS Acute Acute respiratory failure Acute Malnutrition Acute Nausea and vomiting Acute
--- NOTE | 2018-05-24 16:01 | ASMTCMCOM ---
CM Note CM Note Notes: Patient plan of care reviewed. Spoke with Ana LAKE at [facility]. Patient is eligible for 2 week stay at [facility] . Per Ana she reached out to the [facility] and patient is not on reserved senior care bed at this time and does not have housing lined up at this point. He will need oxygen and we may be able to obtain meds via the clinic as well. Ana met with patient who is agreeable. CM to follow for needs. Plan: Dc to [facility] tomorrow. Date Signed: 05/24/2018 04:00 PM Electronically Signed By:Aixa Coy RN
[2018-05-24] MEDS: AZITHROMYCIN 250 MG TAB PO SCH (18:30)
[2018-05-24] MEDS: BENZONATATE 100 MG CAP PO PRN (20:48)
[2018-05-24] MEDS: PATCH REMOVAL 1 EA PATCH TD SCH (20:50)
[2018-05-25] MEDS: oxyCODONE IR 5 MG TAB PO SCH ×3 (00:02→11:28)
[2018-05-25] MEDS: OXYCODONE/APAP 5/325 TAB PO SCH ×3 (00:02→11:29)
[2018-05-25] MEDS: IPRATROPIUM/ALBUTEROL 3 ML DEYVIAL IH SCH ×2 (06:09→11:39)
[2018-05-25 08:13] VITALS: BP 104/79
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
[2018-05-25] MEDS: SULFAMETHOX/TMP 800/160 MG 1 TAB PO SCH (11:28)
[2018-05-25] MEDS: NICOTINE 14 MG/24 HR PATCH TD SCH (11:28)
[2018-05-25] MEDS: EMTRICITABINE PO SCH (11:30)
[2018-05-25] MEDS: TENOFOV ALAFENAM PO SCH (11:30)
[2018-05-25] MEDS: ENOXAPARIN 40 MG/0.4 ML SYR SC SCH (11:30)
[2018-05-25] MEDS: DARUNAVIR PO SCH (11:30)
[2018-05-25] MEDS: LIDOCAINE 4%/MENTHOL 1% PATCH TD SCH (11:30)
[2018-05-25] MEDS: COBICISTAT PO SCH (11:30)
[2018-05-25] MEDS: ACYCLOVIR 400 MG TAB PO SCH (11:30)
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
--- NOTE | 2018-05-25 13:20 | ASMTCMCOM ---
CM Note CM Note Notes: Patient plan of care reviewed in am rounds. He is to dc to a Hotel ( [facility] ) paid for by [facility]. Ana LAKE at [facility] to bring HIV medications, Will send prescription to [facility] for Bactrim. Patient to have oxygen at . Patient also provided [employer] cards from [facility] to enable transportation so he can follow up with Dr. Colin. CM available should other needs arise. Plan: Dc as outlined above. Date Signed: 05/25/2018 01:19 PM Electronically Signed By:Aixa Coy RN
--- NOTE | 2018-05-25 13:20 | ASMTLACE ---
LACE Length of stay for Answers: 7-13 days current admission Acuity / Level of Answers: Yes Care: Did the patient have an inpatient admission? Comorbidities - select Answers: Chronic pulmonary disease all that apply Other Notes: HIV # of Emergency department Answers: 1-2 visits in the last 6 months Social determinants Answers: Homelessness (street, intermediate) Score: 15 Date Signed: 05/25/2018 01:19 PM Electronically Signed By:Aixa Coy RN
== END 2018-05-25 14:53 | disposition home or self-care (01) | DRG 890 ==
LOC: OBSVTOIN 19:01 → F1N 20:20
PROVIDERS: ADMIT Internal Medicine; ATTEND Internal Medicine
DX: B20 Human immunodeficiency virus [HIV] disease (principal); A41.9 Sepsis, unspecified organism; J96.21 Acute and chronic respiratory failure with hypoxia; J18.8 Other pneumonia, unspecified organism; J44.1 Chronic obstructive pulmonary disease with (acute) exacerbation; B00.9 Herpesviral infection, unspecified; Z59.0 Homelessness; F17.200 Nicotine dependence, unspecified, uncomplicated; T37.5X6A Underdosing of antiviral drugs, initial encounter; G62.9 Polyneuropathy, unspecified
CPT/HCPCS: 86359-90; 86360-90; 87449-90; 96365; 97165-GO; 97530-GO; 97535-GO; J0456; J0696; J1650; J2930; J7512; J7613